=== PATIENT | male | born 1995 | race Caucasian/White ===

== ENCOUNTER 2024-12-04 18:06 | Emergency (ER) | payer MEDICAID ==
[~2024-12-04] VITALS: Ht 180.3 cm; Wt 74.8 kg
--- NOTE | 2024-12-04 18:22 | ELECTROCARDIOGRAPH REPORT ---
[facility] Test Date: 2024-12-04 Test Time: 18:21:06 Pat Name: FRANTZ EDEN Department: EMERGENCY ROOM Patient ID: [id number] Room: Gender: M Senior Energy Consultant: BRENDA : 1995 Requested By: LEONIDES VAUGHAN Order Number: [id number] Reading MD: Measurements Intervals [place] Rate: 68 P: 66 OH: 160 QRS: 73 QRSD: 95 T: 73 QT: 389 QTc: 414 Interpretive Statements Sinus rhythm ST elev, probable normal early repol pattern Baseline wander in lead(s) I,II,aVR,aVL,aVF,V3,V4 Please click the below link to view image of tracing.
--- NOTE | 2024-12-04 18:53 | Physician Documentation ---
History of Present Illness ~ Chief Complaint: Chest Pain Stated Complaint: CHEST WALL PAIN Time Seen by MD: 18:48 HPI 29Year old male presents to the ED with a complaint of nausea and intermittent chest pain. He states that he has lives with roommates and place several formerly [facility] er's in his house to fumigate the bugs in his house. He is unable to describe which fog as they were what kind of bugs he was attempting to kill patient does recall going in and out of his house while the the fumigation was occuring.. Patient's exposure began it 1700 this evening And reports after being exposed that he had developed a headache nausea weakness dizziness and chest pain Day of Onset: Dec 04, 2024 Medication Reconciliation Allergies: Coded Allergies: No Known Allergies (Unverified , 12/04/24) Review of Systems All Other Systems at this time: Reviewed and Negative ROS As stated above in the HPI, otherwise all systems are reviewed and negative. Physical Exam Vital Signs: Temperature: 98.2, Source: Temporal, Heart Rate: 92, Respiratory Rate: 17, BP: 156/90, Pulse Oximetry: 100, Weight: 74.800 Progress Results/Orders Results/Orders Completed Orders - DAVID MANZO PENCILLER Ondansetron Disint. Tablet (Zofran Odt T (12/04/24 18:50) Medications Received in ER Medications (Trade) Dose Ordered Sig/Kevin Route PRN Reason Start Time Stop Time Status Last Admin Dose Admin (Zofran ODT tablet) 4 mg ONCE ONCE PO 12/04/24 18:50 12/04/24 18:51 DC 12/04/24 19:21 4 MG Vital Signs 12/04/24 12/04/24 12/04/24 18:15 19:51 19:53 Temp 98.2 98.6 Pulse 92 89 Resp 17 16 B/P (MAP) 156/90 142/86 (104) Pulse Ox 100 99 Medical Decision Making Findings Poison control indicate the patient's presentation is not concerning nor was the fogger's active ingredients in relation to the patient. advised to Treat his symptoms for which I have. I gave him Zofran which alleviated his emesis patient is safe for discharge EKG was reassured Differential Dx:Considerations: Include: angina, aortic dissection, chest wall pain, cholelithiasis, CHF, costochondritis, esophageal reflux/spasm, gastritis, herpes zoster, myocardial infarction, pericarditis, pleuritis, pancreatitis, pneumonia, pneumothorax, pulmonary embolus, other Departure Disposition: 01 HOME / SELF CARE / HOMELESS Impression: Primary Impression: Chest wall pain Condition: Stable Discharge Instructions: Chest Wall Pain Referrals: NO PRIMARY CARE PROVIDER (PCP) Signature Scribe Signature: r Attestation: Scribed for David Manzo Typecasting Machine Operator by David Goins NP . 12/04/24 19:30 DAVID MANZO NP Dec 04, 2024 18:53
[2024-12-04] MEDS: ondansetron 4mg rapidly disintigrating tab PO ONE (19:21)
[2024-12-04 19:51] VITALS: BP 142/86; PULSE 89; RESP 16; O2SAT 99
[2024-12-04 19:53] VITALS: TEMP 98.6
== END 2024-12-04 19:55 | disposition home or self-care (01) ==
LOC: ER 18:07
DX: R07.89 Other chest pain (principal); R11.0 Nausea; R42 Dizziness and giddiness
CPT/HCPCS: 93005; 99283